=== PATIENT | female | born 1970 | race Caucasian/White ===

== ENCOUNTER → 2018-08-18 | Outpatient (CLI) | payer OTHER ==
--- NOTE | 2018-08-18 13:05 | US ---
EXAMINATION TYPE: US thyroid st tissue head/neck DATE OF EXAM: 08/18/2018 COMPARISON: NONE CLINICAL HISTORY: Goiter E04.9. Right thyroidectomy as child GLAND SIZE: Right Lobe: Surgically absent cm Left Lobe: 4.3 x 2.1 x 1.3 cm Overall Parenchyma: heterogeneous Isthmus Thickness: 0.4 cm NODULES RIGHT: # of nodules measured on right: surgincally abesent LEFT: # of nodules measured on left: diffusely heterogeneous ISTHMUS: # of nodules measured in the isthmus: 0 Bilateral neck scanned, no evidence of lymphadenopathy. IMPRESSION: Nonspecific heterogeneity in the lobulated appearance left thyroid lobe. 2. Surgical absence of the right thyroid lobe.
== END | disposition home or self-care (01) ==
LOC: RADUSWWP 12:06
PROVIDERS: ATTEND Internal Medicine
DX: E04.9 Nontoxic goiter, unspecified (principal); E89.0 Postprocedural hypothyroidism
CPT/HCPCS: 76536

== ENCOUNTER → 2019-01-07 | Outpatient (CLI) | payer BC ==
[2019-01-07 11:47] VITALS: BP 122/75; PULSE 80; RESP 16; TEMP 98.2; BMI 29.2
--- NOTE | 2019-01-07 12:30 | P.GSHP ---
History of Present Illness H&P Date: 01/07/19 Chief Complaint: drainage under nipple Giuliana is a 48-year-old white female who presents with a complaint of a draining chronic wound in her right breast under the nipple area over area. Approximately 3 years ago she had an open biopsy at this site which at that time seemed to heal well. The patient states that it was diagnosed secondary to her feeling the area. Was a palpable abnormality. She was told at the time that this was a malignancy in her breast, however she did not have any chemotherapy or radiation therapy. She states her right breast is significantly smaller than her left breast. She did not have any biopsy of the lymph nodes under her arm. She was diagnosed in 2016 with stage III colon cancer. When she received chemotherapy for the colon cancer she did complain of some swelling in the area of the biopsy and drainage. This resolved spontaneously. However, in November 2018 she noted that the area was swollen and she presented to the emergency room in [place]. An I&D of an abscess was performed and the wound was packed. She was treated with antibiotics, she took doxycycline and Keflex. She has fatty cirrhosis of the liver. In October 2018 she had an episode with an elevated bilirubin which resolved spontaneously. This initially healed but in this past several days has become more swollen again and drained again. Of importance is the fact that she is status post colon resection and chemotherapy for colon cancer stage III in 2017. Her medical records are not yet available although they have been requested. There is a question at this time whether the lesion in the breast was a true malignancy or a benign process. The patient last bilateral mammogram was approximately a year ago. However she states that this time her right breast is swollen and uncomfortable and she does not feel that she would be able to undergo mammogram at this time. The patient at this time has not having any fever. She does have intermittent night sweats which she believes is related to being perimenopausal. Family History: 1. mother: breast cancer 2. patient: colon cancer 3. great aunt paternal: breast cancer 4. patient: left thyroid cancer 2013 Hormonal History: menarche: 12 : none menopause: Intermittent spotting, changed with chemotherapy BCP: 6 years hormones: none Past surgical history: 1. Left thyroid resection 2. Colon resection sigmoid 3. Breast lumpectomy 4. Port-A-Cath placed and removed Past Medical History: 1. fatty liver 2. hypothyroid 3. chronic breast abcess Social History: smoke: none alcohol: none drugs: none - Constitutional Constitutional: Reports sweats - EENT Eyes: denies blurred vision, denies pain Ears: left: tinnitus, deny: decreased hearing Ears, nose, mouth and throat: Denies headache, Denies sore throat - Breasts Breasts: bilateral: as per HPI - Cardiovascular Cardiovascular: Denies chest pain, Denies shortness of breath - Respiratory Respiratory: Denies cough, Denies 7 - Gastrointestinal Comment: stage three colon cancer CT done in November saw four spots on her lung which have grown fatty cirrhosis - Genitourinary (Female) Genitourinary: Denies dysuria, Denies hematuria - Menstruation Comment: Perimenopausal, irregular spotting felt to be partly related to chemotherapy - Musculoskeletal Comment: arthritis - Integumentary Integumentary: Denies pruritus, Denies rash - Neurological Comment: 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 Her colon was resected that she was noted to have difficulty with a bleeding, the felt this was related to liver involvement although she is not aware of this has been worked up at this time Platelets are low - Allergic/Immunologic Comment: sulfa, cannot take anything that would affect the liver Past Medical History Past Medical History: Liver Disease, Thyroid Disorder Additional Past Medical History / Comment(s): Questionable pulmonary nodules may be related to stage III colon cancer. Sigmoid resection for stage III colon cancer. Status post chemotherapy she did not have any radiation. Chronic right breast abscess History of Any Multi-Drug Resistant Organisms: None Reported Past Surgical History: Bowel Resection Additional Past Surgical History / Comment(s): thyroidectomy partial Past Psychological History: No Psychological Hx Reported Smoking Status: Never smoker Past Alcohol Use History: Occasional Past Drug Use History: None Reported Medications and Allergies Home Medications Medication Instructions Recorded Confirmed Type B12/Levomefolate Calcium/B-6 1 each PO 01/07/19 History [Foltx Tablet] Furosemide [Lasix] 10 mg PO DAILY 01/07/19 01/07/19 History Potassium Bicarbonate/Cit AC 25 meq PO 01/07/19 History [Potassium 25 Meq Tablet Eff] Spironolactone-Hctz 25-25Mg 1 each PO DAILY 01/07/19 01/07/19 History [Aldactazide 25-25Mg] Allergies Allergy/AdvReac Type Severity Reaction Status Date / Time Sulfa (Sulfonamide Allergy Rash/Hives Verified 01/07/19 11:35 Antibiotics) Surgical - Exam BMI 29.2 - General well developed, well nourished, no distress - Eyes normal ocular movement - ENT no hearing loss, no congestion - Neck no masses, trachea midline - Respiratory normal respiratory effort, clear to auscultation - Cardiovascular Rhythm: regular Heart Sounds: normal: S1, S2 - Abdomen Incision lower abdomen clean and dry well-healed No guarding or rebound Liver is nontender Spleen is not enlarged Abdomen: soft - Integumentary jaundice - Neurologic no disoriented, no combative - Musculoskeletal normal gait, normal posture - Psychiatric oriented to time, oriented to person, oriented to place, speech is normal, memory intact Breast examination: Right breast: Smaller than left breast related to prior surgery Multiple positional exam reveals firmness behind the nipple areolar area and open tract at approximately 5:00 with drainage of yellow green material Right axilla: Shotty adenopathy Left breast: Multiple positional exam no dominant masses or nodules of concern Left axilla: No adenopathy of concern Cultures obtained from the right breast draining area Results Results pending Assessment and Plan Assessment: Impression: 1. Chronic draining abscess right breast 2. Fibrocystic breast changes 3. Questionable history of right breast cancer 4. Stage III colon cancer 5. Recent pulmonary nodules identified 6. Jaundice 7. Fatty cirrhosis of the liver 8. Possible coagulopathy 9. Prior history of thyroid cancer 10. Family history of breast cancer Plan: 1. Recommend breast ultrasound right, and left mammogram 2. Bilateral mammogram on patient is able to undergo one 3. Medical clearance via medical oncology 4. Medical records to be released to allow us 5. Patient will need repeat I&D of the right breast versus right breast biopsy however at this time we are obtaining ultrasound Cc: Dr. Gallegos
== END ==
LOC: WWCWWP 10:51
PROVIDERS: ATTEND Surgery
DX: Z53.9 Procedure and treatment not carried out, unspecified reason (principal)

== ENCOUNTER → 2019-01-28 | Outpatient (CLI) | payer BC ==
[2019-01-28 15:42] VITALS: BP 113/73; PULSE 61; RESP 16; TEMP 98.1; BMI 27.3
--- NOTE | 2019-01-28 16:17 | P.PN ---
Subjective Progress Note Date: 01/28/19 Principal diagnosis: Infection right breast Giuliana is a 48-year-old white female who was initially seen on with a complaint of a draining chronic wound in her right breast under the nipple area. Approximately 3 years ago she had an open biopsy at this site at this time the area seemed to heal. 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 The patient states she has now developed a palpable fullness in this area and has begun to have drainage from the site. She states her right breast is significantly smaller than her left breast. She did not have any biopsy of the lymph nodes under her arm. She was diagnosed in 2016 with stage III colon cancer. She received chemotherapy for the colon cancer she did complain of some swelling in the area of the breast biopsy and had some drainage. This was all spontaneously. However in November 2018 she noted that the area was swollen again and she presented to the emergency room and [place]. An I&D of an abscess was performed and the wound was packed. She was treated with antibiotics. She took doxycycline and Keflex. This area initially healed but has since become more swollen and began draining again. She is status post resection of her colon for stage III colon cancer. There is a question at this time whether the lesion in the breast was a true malignancy or benign abscess. The patient's last bilateral mammogram was over a year ago. The patient was scheduled to have an ultrasound however she declined this and has not had performed yet at this time. Of significance is the fact that the patient had elevated bilirubin in 2017 which resolved spontaneously. The patient has no fever or chills. Family history: 1. mother: breast cancer 2. Patient: Colon cancer 3. Grade and paternal: Breast cancer 4. Patient: Left thyroid cancer Of significance is the fact she has fatty c irrhosis of the liver. Past surgical history: 1. Left thyroid resection 2. Colon resection sigmoid 3. Breast lumpectomy 4. Port-A-Cath placed and removed Past medical history: 1. Fatty liver 2. Hypothyroid 3. 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 stage III colon cancer Endocrine: Thyroid cancer Objective - Vital Signs Vital signs: Vital Signs Temp 98.1 F 01/28/19 15:38 Pulse 61 01/28/19 15:38 Resp 16 01/28/19 15:38 BP 113/73 01/28/19 15:38 Pulse Ox 98 01/28/19 15:38 - Exam BMI 27.4 - Constitutional General appearance: Present: average body habitus - EENT Eyes: Present: EOMI ENT: Present: hearing grossly normal - Neck Neck: Present: normal ROM - Respiratory Respiratory: - Cardiovascular Rhythm: regular Heart sounds: - Integumentary Integumentary Comment(s): Breast examination: Right breast: There is fullness which remains persistent in the periareolar region in the right breast this some drainage of yellow/green fluid from the inferior aspect of the area of the breast - Musculoskeletal Musculoskeletal: Present: gait normal - Psychiatric Psychiatric: Present: A&O x's 3, appropriate affect, intact judgment & insight Assessment and Plan Assessment: Impression: 1. Chronic draining abscess right breast 2. Fibrocystic breast changes 3. Questionable history of right breast cancer 4. Stage III colon cancer 5. Recent pulmonary nodules identified 6. Jaundice 7. Fatty cirrhosis of the liver 8. Possible coagulopathy 9. The patient is not septic at this time History of thyroid cancer 10. Family history of breast cancer Plan: 1. The patient will most likely not undergo radiographic evaluation of the breast prior to surgical incision and drainage 2. Medical clearance from medical oncology secondary to possible coagulopathy 3. Reviewing medical records 4. I&D of right breast draining chronic abscess CC: Rosy
[2019-01-28 17:24] LABS: HCT 32.3 % (34.0-46.0); HGB 10.6 gm/dL (11.4-16.0); MCH 36.7 pg (25.0-35.0); MCHC 32.8 g/dL (31.0-37.0); Macrocytosis Marked; Mean Platelet Volume 7.7; RBC 2.89 m/uL (3.80-5.40); WBC 6.4 k/uL (3.8-10.6)
[2019-01-28 17:32] LABS: INR 1.3 (<1.2); Partial Thromboplastin Time 29.8 sec (22.0-30.0); Prothrombin Time 13.4 sec (9.0-12.0)
[2019-01-28 17:44] LABS: Platelet Count 77 k/uL (150-450)
== END ==
LOC: WWCWWP 15:20
PROVIDERS: ATTEND Surgery
DX: K74.60 Unspecified cirrhosis of liver (principal)
CPT/HCPCS: 36415; 85027; 85610; 85730

== ENCOUNTER 2019-02-01 10:09 | Day surgery (SDC) | payer BC ==
[2019-01-31 12:07] VITALS: BMI 26.6
[~2019-02-01 10:09] MED LIST: DEXAMETHASONE SOD PHOSPHATE 10 MG/ML 1 ML VIAL IV ONE; LACTATED RINGERS 1,000 ML IV SCH; ONDANSETRON 4 MG/2 ML VIAL IVP ONE; Pre Op ABX Message 1 EACH MISC MISCELLANE ONE
[2019-02-01 10:39] VITALS: RESP 16; TEMP 97.3
[2019-02-01] MEDS: HEPARIN SODIUM,PORCINE 5,000 UNIT/ML 1 ML VIAL SQ ONE ×2 (10:46→12:24)
[2019-02-01] MEDS ORDERED: HEPARIN SODIUM,PORCINE 5,000 UNIT/ML 1 ML VIAL SQ ONE (10:57)
[2019-02-01] MEDS ORDERED: PROPOFOL 10 MG/ML 20 ML VIAL IV ONE (12:54)
[2019-02-01] MEDS ORDERED: MIDAZOLAM 2 MG/2 ML VIAL ONE (12:54)
[2019-02-01] MEDS ORDERED: ONDANSETRON 4 MG/2 ML VIAL ONE (12:54)
[2019-02-01] MEDS ORDERED: fentaNYL (PF) 50 MCG/ML 2 ML AMP ONE (12:54)
[2019-02-01] MEDS ORDERED: LIDOCAINE 1% INJ 10MG/ML (20 ML MDV) ONE (12:54)
[2019-02-01] MEDS ORDERED: SODIUM CHLORIDE 0.9% 50 ML with ceFAZolin 2,000 MG IV ONE ×2 (13:17)
--- NOTE | 2019-02-01 13:50 | P.OP ---
Date of Procedure: 02/01/19 Preoperative Diagnosis: Chronic abscess right breast Postoperative Diagnosis: Same Procedure(s) Performed: Incision and drainage chronic abscess right breast Anesthesia: MARGIE Surgeon: Olivia Baptiste Estimated Blood Loss (ml): 20 IV fluids (ml): 600 Pathology: other (Wall of abscess cavity) Condition: stable Disposition: PACU Indications for Procedure: Chronic abscess right breast Operative Findings: Abscess cavity Description of Procedure: Giuliana is a 48-year-old white female with stage III colon cancer, cirrhosis, low platelets, and mildly elevated PTT. She has had a chronic right breast abscess which is draining green/purulent fluid. She has a prior breast biopsy for fibroadenoma and prior I&D of the right breast. The patient's case has been discussed with her medical oncologist who states that although she may be at increased risk for bleeding we should proceed with an I&D of the abscess. Giuliana is aware of the risks and benefits and wishes to proceed. Patient was taken to the operating room and following induction of anesthesia the right breast was prepped and draped in a sterile fashion. There is an open area at the approximate 5 to 6:00 region of the periareolar region cleared green purulent fluid is draining. Cultures were obtained. The area of increased fullness is in the 12 to 1 o'clock position and an incision was made in the periareolar region at this point. This was dissected down to the firm area which was believed to be the area of the abscess. The abscess cavity was identified and this was excised. No large amount of fluid collection was identified. Hemostasis was attained using electrocautery device. The area 6:00 was more widely opened and the connection between this area and the 12:00 area was identified and opened. This area was debrided as well. The wound was then well irrigated. Hemostasis was attained using electrocautery device. The cavity was treated with powderized Surgicel. There was no evidence of any bleeding. The wound was then packed with 2 inch Dayan. The patient tolerated the procedure in a stable condition.
--- NOTE | 2019-02-01 13:53 | P.DS ---
Providers Attending physician: Olivia Baptiste Primary care physician: Naren Gallegos Plan - Discharge Summary Discharge Rx Participant: Yes New Discharge Prescriptions: No Action Spironolactone-Hctz 25-25Mg [Aldactazide 25-25Mg] 1 each PO DAILY Furosemide [Lasix] 10 mg PO DAILY Levothyroxine Sodium [Synthroid] 25 mcg PO DAILY Potassium Otc (Unk Dose) 1 tab PO DAILY Discharge Medication List Furosemide [Lasix] 10 mg PO DAILY 01/07/19 [History] Levothyroxine Sodium [Synthroid] 25 mcg PO DAILY 01/07/19 [History] Spironolactone-Hctz 25-25Mg [Aldactazide 25-25Mg] 1 each PO DAILY 01/07/19 [History] Potassium Otc (Unk Dose) 1 tab PO DAILY 01/31/19 [History] Follow up Appointment(s)/Referral(s): Olivia Baptiste MD [STAFF PHYSICIAN] - 1 Week Activity/Diet/Wound Care/Special Instructions: Do not drive today Patient may shower after 48 hours Dressing to be changed every day wear bra at all times Discharge Disposition: HOME WITH HOME HEALTH SERVICES
[2019-02-01] MEDS: HYDROmorphone 0.5 MG/0.5 ML SYRINGE IVP PRN ×3 (14:06→14:24)
[2019-02-01] MEDS ORDERED: LACTATED RINGERS 1,000 ML IV ONE (15:01)
[2019-02-01 15:44] VITALS: BP 107/66; PULSE 69
== END 2019-02-01 15:50 | disposition home health service (06) ==
LOC: OR 10:09
PROVIDERS: ATTEND Surgery
DX: N61.1 Abscess of the breast and nipple (principal); K74.60 Unspecified cirrhosis of liver; E89.0 Postprocedural hypothyroidism; Z85.3 Personal history of malignant neoplasm of breast; Z85.850 Personal history of malignant neoplasm of thyroid; Z92.21 Personal history of antineoplastic chemotherapy; Z90.49 Acquired absence of other specified parts of digestive tract; Z88.2 Allergy status to sulfonamides; Z79.899 Other long term (current) drug therapy; Z80.3 Family history of malignant neoplasm of breast; Z79.890 Hormone replacement therapy
CPT/HCPCS: 88304; 87070; 87205; 87075; 19020; J2250; J1644; J1100; J2405; J2001; J3010; J0690; J2704; J1170

== ENCOUNTER → 2019-02-03 | Outpatient (CLI) | payer BC ==
--- NOTE | 2019-02-03 08:54 | P.PN ---
Subjective Progress Note Date: 02/03/19 Principal diagnosis: Patient for wound check Giuliana is a 48-year-old white female who on underwent an I&D of a right breast abscess. The patient comes in today for packing change. Of concern is the fact that the patient has stage III liver cancer with cirrhosis. Her pl atelets preoperatively were in the 70s and her PT was minimally elevated at 12.7. The patient initially had home healthcare scheduled to help with the packing changes but chose to go to work and thus because she is not homebound home healthcare was not available. The patient has no complaints today, she is not taking her pain medication because it causes a headache and states that she did have some discomfort last night. Physical examination: Examination of the right breast reveals a right superior circumareolar incision and a counter inferior circumareolar incision. Both are clean and dry. The packing was removed without any bleeding. It was felt the superior incision could be closed without compromising the ability for any infection to drain through the inferior incision. Informed consent was obtained and timeout was performed. The area of the superior incision was prepped using Betadine. 1% lidocaine was used to anesthetize the superior and inferior skin flaps. Several interrupted 3-0 nylon sutures were placed. The wound was repacked using 2 inch plain gauze. The patient tolerated the procedure in stable condition. Impression: 1. Patient with chronic right breast abscess status post I and D 2. Stage III colon cancer with cirrhosis Plan: 1. Packing to be changed daily/patient to be taught how to pack the area 2. Will check on cultures 3. Patient to follow up next week
[2019-02-03 10:20] VITALS: BP 122/59; PULSE 70; RESP 16; TEMP 97; BMI 28.0
== END ==
LOC: WWCWWP 07:59
PROVIDERS: ATTEND Surgery
DX: Z53.9 Procedure and treatment not carried out, unspecified reason (principal)

== ENCOUNTER → 2019-02-10 | Outpatient (CLI) | payer BC ==
[2019-02-10 16:53] VITALS: BP 143/62; PULSE 82; RESP 18; TEMP 98.1; BMI 27.4
--- NOTE | 2019-02-10 17:19 | P.PN ---
Progress Note - Text Progress Note Date: 02/10/19 Giuliana is a 48-year-old white female who on underwent a 90 of a right breast abscess. The patient was [place] packing [place] [id number]. The patient is doing well at this time. She continues to have packing done at home. The patient did have cultures come back with anaerobic gram-positive cocci. There was no sensitivity done on these cultures and we have referred her to infectious disease to see if it would be necessary for her to have any further antibiotic treatment. The patient states that it is uncomfortable when the packing is changed but otherwise she is doing well. Physical exam: Examination of the right breast reveals the incision in the circumareolar area to be clean and dry and healing well. The packing was removed with a small amount of oozing noted. The oozing stopped. The packing was repacked with 2 inch plain gauze. The patient tolerated this with no problem and there was no additional oozing at the end of the packing. Impression/plan: 1. Patient with chronic right breast abscess status post incision and drainage 2. Stage III colon cancer with cirrhosis 3. Gram-positive cocci anerobic patient to see infectious disease 4. Follow-up in 2 weeks 5. An additional prescription for codeine was given that the patient can take this prior to the packing being changed
== END ==
LOC: WWCWWP 16:25
PROVIDERS: ATTEND Surgery
DX: Z53.9 Procedure and treatment not carried out, unspecified reason (principal)

== ENCOUNTER → 2019-02-24 | Outpatient (CLI) | payer BC ==
[2019-02-24 16:49] VITALS: BP 120/77; PULSE 81; RESP 16; TEMP 98.1; BMI 26.6
--- NOTE | 2019-02-24 17:05 | P.PN ---
Progress Note - Text Progress Note Date: 02/24/19 Giuliana is a 49-year-old white female who on underwent a I&D of a right breast abscess. The patient is seen today for packing change. She had cultures performed which came back and anaerobic gram-positive positive cocci and has an appointment to see Dr. Trevino. She is doing well without complaints at this time. Physical exam: Examination of the right breast reveals the incision in the circumareolar were area is clean and dry and healing well at this time. The packing was removed and was repacked with 2 inch plain gauze. The patient tolerated this with no problem. Impression/plan: 1. Patient with chronic right breast abscess status post incision and drainage 2. Stage III colon cancer with cirrhosis 3. Gram-positive cocci in aerobic patient recommended to see infectious disease 4. Follow-up in 2 weeks 5. To the circumareolar sutures were removed and the patient has to left in place which will most likely be removed at the next time CC:DR. Gallegos
== END | disposition home or self-care (01) ==
LOC: WWCWWP 16:19
PROVIDERS: ATTEND Surgery
DX: Z53.9 Procedure and treatment not carried out, unspecified reason (principal)

== ENCOUNTER → 2019-03-31 | Outpatient (CLI) | payer BC ==
[2019-03-31 17:15] VITALS: BP 117/74; PULSE 90; RESP 18; TEMP 98.5; BMI 25.9
--- NOTE | 2019-03-31 17:34 | P.PN ---
Progress Note - Text Progress Note Date: 03/31/19 Patient is a 49-year-old white female who underwent 319 underwent an I&D of a right breast abscess. The patient is seen today for packing change. She is also seeing Dr. Trevino from infectious disease today. New cultures have been obtained. The patient is not complaining of any fever or chills. The patient states that the pain has decreased significantly in size. Physical exam: Examination the right breast reveals the incision in the circumareolar area to be clean and dry and healing well at this time. Packing had been removed and Dr. Trevino office and the wound is evaluated. This is approximately 2.2 cm deep. The wound is repacked. Impression/plan: 1. Patient with chronic right breast abscess status post incision and drainage 2. Stage III colon cancer with cirrhosis 3. Gram-positive cocci in the past cultures repeated today 4. Follow-up in 2 months Cc: DR. Gallegos
== END ==
LOC: WWCWWP 16:44
PROVIDERS: ATTEND Surgery
DX: Z53.9 Procedure and treatment not carried out, unspecified reason (principal)